=== PATIENT | female | born 1985 | race Caucasian/White ===

== ENCOUNTER 2020-09-22 20:26 | Emergency (ER) | payer MEDICAID ==
--- NOTE | 2020-09-22 21:27 | EDM.PDOC ---
ED HPI GENERAL MEDICAL PROBLEM - General Chief Complaint: Abdominal Pain Stated Complaint: ABD PAIN Time Seen by Provider: 09/22/20 20:40 Source of Information: Reports: Patient, EMS, RN, RN Notes Reviewed History Limitations: Reports: Intoxication (Likely) - History of Present Illness Onset: Today Onset Time: 20:00 (Prior to arrival by ambulance) Duration: Hour(s): Location: Reports: Abdomen (Epigastric region) Quality: Reports: Sharp Severity: Moderate Worsens with: Reports: None Context: Reports: Sick Contact Associated Symptoms: Reports: Other (Patient not quite cooperative with history or exam) 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 She stated to ambulance crew she was out of gabapentin however told me she had taken to gabapentin that she had leftover. ) - Related Data Allergies Allergy/AdvReac Type Severity Reaction Status Date / Time No Known Allergies Allergy Verified 09/22/20 21:19 Home Meds: Home Meds NK [No Known Home Meds] 09/22/20 [History] ED ROS GENERAL - Review of Systems Review Of Systems: See Below Constitutional: Reports: Decreased Appetite (Patient says she hasn't eaten in a couple of days) HEENT: Reports: No Symptoms Respiratory: Reports: No Symptoms Cardiovascular: Reports: No Symptoms GI/Abdominal: Reports: Abdominal Pain, Decreased Appetite. Denies: Black Stool, Bloody Stool, Constipation, Diarrhea, Difficulty Swallowing, Distension, Nausea, Vomiting : Reports: No Symptoms Musculoskeletal: Reports: No Symptoms Skin: Reports: No Symptoms Neurological: Reports: No Symptoms Psychiatric: Reports: No Symptoms Hematologic/Lymphatic: Reports: No Symptoms ED EXAM, GI/ABD - Physical Exam Exam: See Below Exam Limited By: Intoxication (Possible; patient smells of alcohol and is having difficulty concentrating or following conversation.) General Appearance: Lethargic, Moderate Distress Eyes: Bilateral: Normal Appearance, EOMI Ears: Normal External Exam, Normal Canal, Hearing Grossly Normal, Normal TMs Nose: Normal Inspection, Normal Mucosa, No Blood Throat/Mouth: Normal Inspection, Normal Lips Head: Atraumatic, Normocephalic Neck: Normal Inspection, Supple, Non-Tender Respiratory/Chest: No Respiratory Distress, Lungs Clear Cardiovascular: Normal Peripheral Pulses, Regular Rate, Rhythm GI/Abdominal Exam: Soft, No Organomegaly, No Distention, No Abnormal Bruit, No Mass, Guarding, Tender (Epigastric region) Extremities: Normal Inspection, Normal Range of Motion Neurological: Oriented, CN II-XII Intact Psychiatric: Tearful Skin Exam: Warm, Dry, Intact Lymphatic: No Adenopathy Course - Vital Signs Last Recorded V/S: Last Vital Signs Temp 36.2 C 09/22/20 21:29 Pulse 105 H 09/22/20 21:29 Resp 12 09/22/20 21:29 BP 143/91 H 09/22/20 21:29 Pulse Ox 96 09/22/20 21:29 - Orders/Labs/Meds Labs: Laboratory Tests 09/22/20 09/22/20 09/22/20 Range/Units 20:55 20:55 20:55 WBC 8.9 (4.5-11.0) K/uL RBC 4.32 (3.30-5.50) M/uL Hgb 13.5 (12.0-15.0) g/dL Hct 39.9 (36.0-48.0) % MCV 92 (80-98) fL MCH 31 (27-31) pg MCHC 34 (32-36) % Plt Count 266 (150-400) K/uL Neut % (Auto) 57.2 (36-66) % Lymph % (Auto) 32.6 (24-44) % [place] % (Auto) 8.8 H (2-6) % Eos % (Auto) 0.8 L (2-4) % Baso % (Auto) 0.6 (0-1) % Sodium 141 (140-148) mmol/L Potassium 3.2 L (3.6-5.2) mmol/L Chloride 101 (100-108) mmol/L Carbon Dioxide 30 (21-32) mmol/L Anion Gap 13.2 (5.0-14.0) mmol/L BUN 4 L (7-18) mg/dL Creatinine 0.7 (0.6-1.0) mg/dL Est Cr Clr Drug Dosing 94.56 mL/min Estimated GFR (MDRD) > 60 (>60) Glucose 99 (74-106) mg/dL Lactic Acid 1.8 (0.4-2.0) mmol/L Calcium 8.7 (8.5-10.1) mg/dL Total Bilirubin 0.3 (0.2-1.0) mg/dL AST 25 (15-37) U/L ALT 37 (12-78) U/L Alkaline Phosphatase 132 H (46-116) U/L Total Protein 6.3 L (6.4-8.2) g/dL Albumin 3.2 L (3.4-5.0) g/dL Globulin 3.1 (2.3-3.5) g/dL Albumin/Globulin Ratio 1.0 L (1.2-2.2) Amylase 30 (25-115) U/L Lipase 45 L (73-393) U/L HCG, Quant (0-6) mIU/mL 09/22/20 Range/Units 20:55 WBC (4.5-11.0) K/uL RBC (3.30-5.50) M/uL Hgb (12.0-15.0) g/dL Hct (36.0-48.0) % MCV (80-98) fL MCH (27-31) pg MCHC (32-36) % Plt Count (150-400) K/uL Neut % (Auto) (36-66) % Lymph % (Auto) (24-44) % [place] % (Auto) (2-6) % Eos % (Auto) (2-4) % Baso % (Auto) (0-1) % Sodium (140-148) mmol/L Potassium (3.6-5.2) mmol/L Chloride (100-108) mmol/L Carbon Dioxide (21-32) mmol/L Anion Gap (5.0-14.0) mmol/L BUN (7-18) mg/dL Creatinine (0.6-1.0) mg/dL Est Cr Clr Drug Dosing mL/min Estimated GFR (MDRD) (>60) Glucose (74-106) mg/dL Lactic Acid (0.4-2.0) mmol/L Calcium (8.5-10.1) mg/dL Total Bilirubin (0.2-1.0) mg/dL AST (15-37) U/L ALT (12-78) U/L Alkaline Phosphatase (46-116) U/L Total Protein (6.4-8.2) g/dL Albumin (3.4-5.0) g/dL Globulin (2.3-3.5) g/dL Albumin/Globulin Ratio (1.2-2.2) Amylase (25-115) U/L Lipase (73-393) U/L HCG, Quant 0 (0-6) mIU/mL Lab does not define significant reason for her abdominal pain however her alk phos is elevated which does show some liver damage. Patient does admit to drinking quite a bit recently. - Radiology Interpretation Free Text/Narrative:: CT unremarkable does not explain abdomen pain. Review of results with patient she states at this time pain has subsided and she would like to go home. - Re-Assessments/Exams Free Text/Narrative Re-Assessment/Exam: Review of x-ray with patient patient has decided at this time to go home as her pain is resolving and the results of the lab and x-ray do not show a reason for her pain. Patient instructed to take her medication as prescribed. Patient instructed to abstain from alcohol. Patient instructed to return if she has any questions or concerns and/or follow-up with her primary care provider next week. 09/22/20 23:39 Departure - Departure Time of Disposition: 00:11 Disposition: Home, Self-Care 01 Condition: Fair Clinical Impression: Pain in the abdomen - Discharge Information *PRESCRIPTION DRUG MONITORING PROGRAM REVIEWED*: Not Applicable *COPY OF PRESCRIPTION DRUG MONITORING REPORT IN PATIENT CODI: Not Applicable Instructions: Abdominal Pain, Adult, [id number] Referrals: PCP,None [Primary Care Provider] - Forms: ED Department Discharge Additional Instructions: Follow-up with primary care provider in clinic if abdomen pain returns Care Plan Goals: Take medications as prescribed to prevent abdomen pain from returning. Sepsis Event Note (ED) - Focused Exam Vital Signs: Vital Signs Temp Pulse Resp BP Pulse Ox 09/22/20 21:29 36.2 C 105 H 12 143/91 H 96 - Assessment/Plan Assessment:: Abdomen pain due to running out of gabapentin Plan: Refill medications prior to running out.
--- NOTE | 2020-09-22 23:34 | CRLCT ---
For Patients: As a result of the Century Cures Act, medical imaging exams and procedure reports are released immediately into your electronic medical record. You may view this report before your referring provider. If you have questions, please contact your health care provider. INDICATION: Mid abdominal pain TECHNIQUE: CT abdomen and pelvis acquired without IV contrast. COMPARISON: None FINDINGS: Lower chest: Unremarkable. Liver: Unremarkable. Spleen: Unremarkable. Pancreas: Unremarkable. Gallbladder and bile ducts: Unremarkable. Adrenal glands: Unremarkable. Kidneys: Unremarkable. GI tract: Unremarkable. Appendix appears to be surgically absent. Vascular structures: Unremarkable. Lymph nodes: Unremarkable. Miscellaneous: Unremarkable. No free air or significant free fluid. Pelvic Organs: Unremarkable. Bones: Unremarkable for age. IMPRESSION: No acute intra-abdominal process identified. The appendix appears to be surgically absent. Correlate with surgical history Please note that all CT scans at this facility use dose modulation, iterative reconstruction, and/or weight-based dosing when appropriate to reduce radiation dose to as low as reasonably achievable. Dictated by Tere Smith MD @ 09/22/2020 11:33:[address] Tere Smith @ Sep 22 2020 11:33PM
== END 2020-09-22 23:55 | disposition home or self-care (01) ==
LOC: JP.ED 20:26
DX: R10.13 Epigastric pain (principal)
CPT/HCPCS: 36415; 74176; 80053; 82150; 83605; 83690; 84702; 85025; 99283; 99284-25

== ENCOUNTER 2020-11-12 00:09 | Emergency (ER) | payer MEDICAID ==
--- NOTE | 2020-11-12 00:25 | EDM.PDOC ---
ED HPI GENERAL MEDICAL PROBLEM - General Chief Complaint: Abdominal Pain Stated Complaint: MEDICAL VIA [facility] Time Seen by Provider: 11/12/20 00:14 Source of Information: Reports: Patient, EMS History Limitations: Reports: No Limitations - History of Present Illness INITIAL COMMENTS - FREE TEXT/NARRATIVE: Cale is a 35-year-old female presenting to the ED via [facility] for evaluation of bilateral lower abdominal pain and vaginal bleeding. Patient states that she started having vaginal spotting earlier today. She states that she is overdue for her menses. She reports that she has had 3 previous miscarriages with the first at 5 months, the second at 2-1/2 months, and a third at 3 months. She was apparently in the custody of law enforcement after being chased, however, the details are unclear as to what she was in custody for. Law enforcement is not here accompanying her at this time. The patient is tachycardic, tachypneic, agitated, and has pressured speech like a stimulant is on board. She does report to EMS that she used methamphetamine 2 days ago. Lower Abdomen Pain Score (Numeric/FACES): 7 - Related Data Allergies Allergy/AdvReac Type Severity Reaction Status Date / Time No Known Allergies Allergy Verified 11/12/20 00:16 Home Meds: Home Meds cephALEXin [Cephalexin] 500 mg PO BID #13 capsule 11/12/20 [Rx] Past Medical History - Past Surgical History GI Surgical History: Reports: Appendectomy Social & Family History - Caffeine Use Caffeine Use: Reports: Coffee, Soda ED ROS GENERAL - Review of Systems Review Of Systems: See Below Constitutional: Reports: No Symptoms HEENT: Reports: Other (Dry mouth) Respiratory: Reports: Shortness of Breath Cardiovascular: Reports: No Symptoms Endocrine: Reports: No Symptoms GI/Abdominal: Reports: Abdominal Pain (Bilateral lower quadrant abdominal pain) : Reports: Other (Overdue for her menses but now having vaginal bleeding) Musculoskeletal: Reports: No Symptoms Skin: Reports: Wound (Numerous excoriations of the skin ems and legs consistent with picking) Neurological: Reports: No Symptoms Psychiatric: Reports: Agitation, Anxiety Hematologic/Lymphatic: Reports: No Symptoms Immunologic: Reports: No Symptoms ED EXAM, GI/ABD - Physical Exam Exam: See Below Exam Limited By: No Limitations General Appearance: Alert, Anxious, Moderate Distress Eyes: Bilateral: EOMI (Pinpoint pupils that react to light) Throat/Mouth: Normal Oropharynx, Normal Voice, No Airway Compromise Head: Atraumatic, Normocephalic Neck: Normal Inspection, Supple, Non-Tender, Full Range of Motion Respiratory/Chest: No Respiratory Distress, Lungs Clear, Normal Breath Sounds, Other (Tachypnea) Cardiovascular: Normal Peripheral Pulses, Regular Rate, Rhythm, No Murmur, Tachycardia GI/Abdominal Exam: Normal Bowel Sounds, Soft, Tender (Bilateral lower quadrant and suprapubic tenderness to palpation). No: Guarding, Rigid, Rebound Back Exam: Normal Inspection Extremities: Normal Inspection Neurological: Alert, Oriented, Normal Cognition, No Motor/Sensory Deficits Psychiatric: Anxious Skin Exam: Warm, Dry, Wound/Incision (Various picking type wounds on the upper and lower extremities some excoriations on the lower extremities). No: Ecchymosis, Erythema Course - Vital Signs Last Recorded V/S: Last Vital Signs Temp 36.8 C 11/12/20 00:13 Pulse 103 H 11/12/20 00:13 Resp 28 H 11/12/20 00:13 BP 128/85 11/12/20 00:13 Pulse Ox 100 11/12/20 00:13 - Orders/Labs/Meds Orders: Active Orders 24 hr Category Date Time Status Abdomen Pelvis wo Cont [CT] Stat Exams 11/12/20 00:58 Stop Req cephALEXin [Keflex] Med 11/12/20 01:06 Once 500 mg PO ONETIME ONE Labs: Laboratory Tests 11/12/20 11/12/20 11/12/20 Range/Units 00:22 00:22 00:22 WBC (4.5-11.0) K/uL RBC (3.30-5.50) M/uL Hgb (12.0-15.0) g/dL Hct (36.0-48.0) % MCV (80-98) fL MCH (27-31) pg MCHC (32-36) % Plt Count (150-400) K/uL Neut % (Auto) (36-66) % Lymph % (Auto) (24-44) % [place] % (Auto) (2-6) % Eos % (Auto) (2-4) % Baso % (Auto) (0-1) % Sodium (140-148) mmol/L Potassium (3.6-5.2) mmol/L Chloride (100-108) mmol/L Carbon Dioxide (21-32) mmol/L Anion Gap (5.0-14.0) mmol/L BUN (7-18) mg/dL Creatinine (0.6-1.0) mg/dL Est Cr Clr Drug Dosing mL/min Estimated GFR (MDRD) (>60) Glucose (74-106) mg/dL Calcium (8.5-10.1) mg/dL Total Bilirubin (0.2-1.0) mg/dL AST (15-37) U/L ALT (12-78) U/L Alkaline Phosphatase (46-116) U/L Total Protein (6.4-8.2) g/dL Albumin (3.4-5.0) g/dL Globulin (2.3-3.5) g/dL Albumin/Globulin Ratio (1.2-2.2) Urine Color Yellow (YELLOW) Urine Appearance Slightly cloudy A (CLEAR) Urine pH 7.5 (5.0-8.0) Ur Specific [place] 1.020 (1.008-1.030) Urine Protein Negative (NEGATIVE) mg/dL Urine Glucose (UA) Negative (NEGATIVE) mg/dL Urine Ketones Trace H (NEGATIVE) mg/dL Urine Occult Blood Small H (NEGATIVE) Urine Nitrite Positive H (NEGATIVE) Urine Bilirubin Negative (NEGATIVE) Urine Urobilinogen 1.0 (0.2-1.0) EU/dL Ur Leukocyte Esterase Trace H (NEGATIVE) Urine RBC 0-5 (0-5) Urine WBC 5-10 H (0-5) Ur Epithelial Cells Few Amorphous Sediment Not seen Urine Bacteria Many Urine Mucus Not seen Urine HCG, Qual Negative Urine Opiates Screen Negative (NEGATIVE) Ur Oxycodone Screen Negative (NEGATIVE) Urine Methadone Screen Negative (NEGATIVE) Ur Propoxyphene Screen Negative (NEGATIVE) Ur Barbiturates Screen Negative (NEGATIVE) Ur Tricyclics Screen Negative (NEGATIVE) Ur Phencyclidine Scrn Negative (NEGATIVE) Ur Amphetamine Screen Presumptive positive H (NEGATIVE) U Methamphetamines Scrn Presumptive positive H (NEGATIVE) Urine MDMA Screen Negative (NEGATIVE) U Benzodiazepines Scrn Negative (NEGATIVE) U Cocaine Metab Screen Negative (NEGATIVE) U Marijuana (THC) Screen Presumptive positive H (NEGATIVE) Ethyl Alcohol mg/dL 11/12/20 11/12/20 11/12/20 Range/Units 00:25 00:25 00:25 WBC 13.2 H (4.5-11.0) K/uL RBC 4.44 (3.30-5.50) M/uL Hgb 13.7 (12.0-15.0) g/dL Hct 40.5 (36.0-48.0) % MCV 91 (80-98) fL MCH 31 (27-31) pg MCHC 34 (32-36) % Plt Count 308 (150-400) K/uL Neut % (Auto) 73.2 H (36-66) % Lymph % (Auto) 19.1 L (24-44) % [place] % (Auto) 5.9 (2-6) % Eos % (Auto) 1.4 L (2-4) % Baso % (Auto) 0.4 (0-1) % Sodium 145 (140-148) mmol/L Potassium 3.5 L (3.6-5.2) mmol/L Chloride 105 (100-108) mmol/L Carbon Dioxide 25 (21-32) mmol/L Anion Gap 18.5 H (5.0-14.0) mmol/L BUN 9 D (7-18) mg/dL Creatinine 0.8 (0.6-1.0) mg/dL Est Cr Clr Drug Dosing 79.11 mL/min Estimated GFR (MDRD) > 60 (>60) Glucose 95 (74-106) mg/dL Calcium 8.9 (8.5-10.1) mg/dL Total Bilirubin 0.3 (0.2-1.0) mg/dL AST 23 (15-37) U/L ALT 33 (12-78) U/L Alkaline Phosphatase 126 H (46-116) U/L Total Protein 6.8 (6.4-8.2) g/dL Albumin 3.5 (3.4-5.0) g/dL Globulin 3.3 (2.3-3.5) g/dL Albumin/Globulin Ratio 1.1 L (1.2-2.2) Urine Color (YELLOW) Urine Appearance (CLEAR) Urine pH (5.0-8.0) Ur Specific [place] (1.008-1.030) Urine Protein (NEGATIVE) mg/dL Urine Glucose (UA) (NEGATIVE) mg/dL Urine Ketones (NEGATIVE) mg/dL Urine Occult Blood (NEGATIVE) Urine Nitrite (NEGATIVE) Urine Bilirubin (NEGATIVE) Urine Urobilinogen (0.2-1.0) EU/dL Ur Leukocyte Esterase (NEGATIVE) Urine RBC (0-5) Urine WBC (0-5) Ur Epithelial Cells Amorphous Sediment Urine Bacteria Urine Mucus Urine HCG, Qual Urine Opiates Screen (NEGATIVE) Ur Oxycodone Screen (NEGATIVE) Urine Methadone Screen (NEGATIVE) Ur Propoxyphene Screen (NEGATIVE) Ur Barbiturates Screen (NEGATIVE) Ur Tricyclics Screen (NEGATIVE) Ur Phencyclidine Scrn (NEGATIVE) Ur Amphetamine Screen (NEGATIVE) U Methamphetamines Scrn (NEGATIVE) Urine MDMA Screen (NEGATIVE) U Benzodiazepines Scrn (NEGATIVE) U Cocaine Metab Screen (NEGATIVE) U Marijuana (THC) Screen (NEGATIVE) Ethyl Alcohol 65 mg/dL Meds: Medications Discontinued Medications Generic Name Dose Route Start Last Admin Trade Name Freq PRN Reason Stop Dose Admin Ketorolac Tromethamine 30 mg 11/12/20 00:56 Ketorolac 30 Mg/Ml Sdv IVPUSH 11/12/20 00:57 ONETIME ONE - Re-Assessments/Exams Free Text/Narrative Re-Assessment/Exam: 11/12/20 00:59 labs were reviewed showing a CBC with a leukocyte count of 13.2 and a slight left shift with 70% neutrophils. Hemoglobin is 13.7 with hematocrit of 40.5 and a platelet count of 308,000. Comprehensive metabolic panel is normal except for an elevation of her alkaline phosphatase. Urine hCG is negative for . Urine tox screen is positive for amphetamine, methamphetamine, and tetrahydrocannabinol. Urinalysis is positive for nitrites and leukocyte esterase with 5-10 WBCs. I do suspect that her abdominal pain is likely due to her urinary tract infection and the new onset of menses with the negative hCG is likely associated with the complaint of vaginal bleeding. We will start the patient on cephalexin 500 mg twice daily for 7 days for the urinary tract infection. She was given Toradol 30 mg IV in the ED for the pain. Departure - Departure Time of Disposition: : Disposition: Home, Self-Care 01 Clinical Impression: Lower abdominal pain, Delayed menses, Methamphetamine use, Marijuana use Acute cystitis Qualifiers: Hematuria presence: without hematuria Qualified Code(s): N30.00 - Acute cystitis without hematuria - Discharge Information Prescriptions: cephALEXin [Cephalexin] 500 mg PO BID #13 capsule Instructions: Abdominal Pain, Adult, [id number], Substance Use Disorder Referrals: PCP,None [Primary Care Provider] - Forms: ED Department Discharge Care Plan Goals: Your work-up today has shown that your low abdominal pain is likely due to an acute infection in your bladder. Your vaginal bleeding is due to the onset of your. As there is no evidence that you are . We also did find that you had several substances active in your urine including methamphetamine and marijuana. I would encourage you to discontinue these in the future as they will both significantly impact your health. We will treat your bladder infection with an antibiotic called cephalexin that you will take twice daily for 7 days. You may take Aleve or ibuprofen for your menstrual pain. Ibuprofen can be 600 800 mg every 6 hours or Aleve is 2 tablets every 12 hours. Sepsis Event Note (ED) - Focused Exam Vital Signs: Vital Signs Temp Pulse Resp BP Pulse Ox 11/12/20 00:13 36.8 C 103 H 28 H 128/85 100 - Problem List & Annotations (1) Acute cystitis SNOMED Code(s): 85473912 Code(s): N30.00 - ACUTE CYSTITIS WITHOUT HEMATURIA Status: Acute Priority: Medium Current Visit: Yes Qualifiers: Hematuria presence: without hematuria Qualified Code(s): N30.00 - Acute cystitis without hematuria (2) Delayed menses SNOMED Code(s): 172108052 Code(s): N91.0 - PRIMARY AMENORRHEA Status: Acute Priority: Medium Current Visit: Yes (3) Lower abdominal pain SNOMED Code(s): 13935704 Code(s): R10.30 - LOWER ABDOMINAL PAIN, UNSPECIFIED Status: Acute Priority: Medium Current Visit: Yes (4) Marijuana use SNOMED Code(s): 243851493 Code(s): F12.90 - CANNABIS USE, UNSPECIFIED, UNCOMPLICATED Status: Acute Priority: Medium Current Visit: Yes (5) Methamphetamine use SNOMED Code(s): 546082723 Code(s): F15.10 - OTHER STIMULANT ABUSE, UNCOMPLICATED Status: Acute Priority: Medium Current Visit: Yes - Problem List Review Problem List Initiated/Reviewed/Updated: Yes - My Orders Last 24 Hours: My Active Orders 11/12/20 00:58 Abdomen Pelvis wo Cont [CT] Stat 11/12/20 01:06 cephALEXin [Keflex] 500 mg PO ONETIME ONE - Assessment/Plan Last 24 Hours: My Active Orders 11/12/20 00:58 Abdomen Pelvis wo Cont [CT] Stat 11/12/20 01:06 cephALEXin [Keflex] 500 mg PO ONETIME ONE
[2020-11-12] MEDS ORDERED: Ketorolac 30 MG/ML SDV IVPUSH ONE (00:56)
[2020-11-12] MEDS ORDERED: Cephalexin 250 MG Cap PO ONE (01:06)
== END 2020-11-12 01:25 | disposition home or self-care (01) ==
LOC: JP.ED 00:09
DX: N30.00 Acute cystitis without hematuria (principal); N91.0 Primary amenorrhea; F15.90 Other stimulant use, unspecified, uncomplicated; F12.90 Cannabis use, unspecified, uncomplicated
CPT/HCPCS: 36415; 80053; 80305; 80307; 81001; 81025; 85025; 96374; 99284; A9270; J1885